=== PATIENT | female | born 1975 | race Two or more races ===

== ENCOUNTER 2020-01-07 19:34 | Emergency (ER) | payer MEDICARE, MEDICAID ==
[~2020-01-07] VITALS: Ht 152.4 cm; Wt 90.7 kg
[~2020-01-07 19:34] MED LIST: AMIT25TA9; LEVE500T22 PO; MORP15TA PO; OXY10CRT PO; TRAZ100T3 PO
[2020-01-07] MEDS ORDERED: SODIUM CHLORIDE 0.9% 1,000 ML IV ONE (20:30)
[2020-01-07 21:29] LABS: Calcium 9.5 mg/dL (8.5-10.1)
[2020-01-07 21:30] LABS: Urine Bacteria FEW /hpf (None Seen); Urine Blood Negative /uL (Negative); Urine Hyaline Cast MOD /lpf (0 - 2); Urine Mucus FEW (None Seen); Urine Specific Gravity 1.014 (1.001-1.035); Urine WBC 1 /hpf (0 - 5)
[2020-01-07] MEDS ORDERED: MORPHINE SULFATE 4 MG/ML SYR/VIAL IV ONE (21:30)
[2020-01-07] MEDS ORDERED: ONDANSETRON HCL 4 MG/2 ML VIAL IV ONE (21:30)
[2020-01-07 21:32] LABS: Amylase 31 U/L (25-115); Lipase 67 U/L (73-393)
[2020-01-07 21:34] LABS: BUN/Creatinine Ratio 17.4; Bilirubin, Total 0.2 mg/dL (0.2-1.0); Total Protein 7.5 g/dL (6.4-8.2)
[2020-01-07 21:41] LABS: Basophils # (auto) 0 10 ^3/uL (0-0.2); Basophils % (auto) 0.3 % (0.0-2.0); Eosinophils # (auto) 0 10 ^3/uL (0-0.8); Eosinophils % (auto) 0.3 % (0.0-7.0); Hemoglobin 11.6 g/dL (12.2-16.2); Lymphocytes % (auto) 20.9 % (10.0-50.0); Mean Corpuscular Hemoglobin 28.4 pg (28.0-32.0); Mean Corpuscular Hgb Conc. 32.3 g/dL (32.0-36.0); Mean Corpuscular Volume 87.7 fL (80.0-100.0); Monocytes # (auto) 0.7 10 ^3/uL (0-1.3); Monocytes % (auto) 7.9 % (0.0-12.0); Neutrophils # (auto) 6.7 10 ^3/uL (1.6-8.6); Neutrophils % (auto) 70.6 % (37.0-80.0); Nucleated Red Blood Cells % 0.1 %; Platelet Count (auto) 383 10^3/uL (140-450); Red Cell Distribution Width 13.6 % (11.8-14.3); White Blood Cell 9.5 10^3/uL (4.4-10.8)
[2020-01-07 22:24] VITALS: BP 91/47
== END 2020-01-08 00:08 | disposition home or self-care (01) ==
LOC: ER 19:35
DX: K59.00 Constipation, unspecified (principal); N39.0 Urinary tract infection, site not specified; F19.90 Other psychoactive substance use, unspecified, uncomplicated; I10 Essential (primary) hypertension; E11.9 Type 2 diabetes mellitus without complications; Z79.899 Other long term (current) drug therapy; Z88.1 Allergy status to other antibiotic agents
CPT/HCPCS: 36415; 74176; 80053; 81001; 81025; 82150; 83690; 85025; 96374; 96375; 99284; J2270; J2405

== ENCOUNTER 2020-02-03 02:28 | Emergency (ER) | payer MEDICARE, MEDICAID ==
[~2020-02-03] VITALS: Ht 152.4 cm; Wt 104.3 kg
[2020-02-03] MEDS ORDERED: KETOROLAC TROMETH 60MG/2ML VIAL IM ONE (05:00)
[2020-02-03] MEDS ORDERED: methylPREDNISolone SOD SUCC 125 MG/2 ML VL IM ONE (05:00)
[2020-02-03] MEDS ORDERED: HYDROcodone-ACET 10/325MG TAB PO ONE (05:00)
[2020-02-03 06:06] VITALS: BP 119/67
== END 2020-02-03 06:07 | disposition home or self-care (01) ==
LOC: ER 02:30
DX: M54.16 Radiculopathy, lumbar region (principal); M54.40 Lumbago with sciatica, unspecified side; G89.29 Other chronic pain; E11.9 Type 2 diabetes mellitus without complications; I10 Essential (primary) hypertension; Z88.1 Allergy status to other antibiotic agents; Z79.899 Other long term (current) drug therapy
CPT/HCPCS: 82962; 96372; 99283; J1885

== ENCOUNTER 2020-02-06 09:08 | Emergency (ER) | payer MEDICARE, MEDICAID ==
[~2020-02-06] VITALS: Ht 154.9 cm; Wt 104.3 kg
[~2020-02-06 09:08] MED LIST changes: -LEVE500T22 PO; +LEVE500T32 PO
[2020-02-06 09:42] VITALS: BP 112/52
[2020-02-06] MEDS ORDERED: MORPHINE SULFATE 10 MG/ML INJ 1ML SDV IM ONE ×2 (10:15→10:30)
[2020-02-06] MEDS ORDERED: PROMETHAZINE HCL 25 MG/ML 1ML IM ONE (10:15)
[2020-02-06] MEDS ORDERED: MORPHINE SULFATE 4 MG/ML SYR/VIAL IM ONE (10:30)
== END 2020-02-06 11:06 | disposition home or self-care (01) ==
LOC: ER 09:08 → EDBD 09:08 → ER 11:06
DX: M54.5 Low back pain (principal); G89.29 Other chronic pain; E11.9 Type 2 diabetes mellitus without complications; I10 Essential (primary) hypertension; Z88.1 Allergy status to other antibiotic agents
CPT/HCPCS: 96372; 99284; J2270; J2550

== ENCOUNTER 2020-12-05 23:41 | Inpatient (IN) | payer MEDICARE, MEDICAID ==
[~2020-12-05] VITALS: Ht 152.4 cm; Wt 101.7 kg
[2020-12-05] MEDS ORDERED: FAMOTIDINE (10MG/ML) 2ML VL IV ONE (23:45)
[2020-12-05] MEDS ORDERED: ONDANSETRON HCL 4 MG/2 ML VIAL IV ONE (23:45)
[2020-12-05] MEDS ORDERED: MORPHINE SULFATE 4 MG/ML SYR/VIAL IV ONE (23:45)
[2020-12-06 00:32] LABS: Basophils # (auto) 0 10 ^3/uL (0-0.2); Eosinophils # (auto) 0.1 10 ^3/uL (0-0.8); Eosinophils % (auto) 1.3 % (0.0-7.0); Hematocrit 30.8 % (36.0-46.0); Hemoglobin 10.6 g/dL (12.2-16.2); Lymphocytes # (auto) 1.6 10 ^3/uL (0.4-5.4); Lymphocytes % (auto) 22.2 % (10.0-50.0); Mean Corpuscular Hemoglobin 30.6 pg (28.0-32.0); Mean Corpuscular Hgb Conc. 34.3 g/dL (32.0-36.0); Mean Corpuscular Volume 89.3 fL (80.0-100.0); Monocytes # (auto) 0.8 10 ^3/uL (0-1.3); Monocytes % (auto) 10.5 % (0.0-12.0); Neutrophils # (auto) 4.8 10 ^3/uL (1.6-8.6); Nucleated Red Blood Cells % 0.1 %; Platelet Count (auto) 338 10^3/uL (140-450); Red Blood Cells 3.45 10^6/uL (4.0-5.20); White Blood Cell 7.4 10^3/uL (4.4-10.8)
[2020-12-06] MEDS ORDERED: SODIUM CHLORIDE 0.9% 1,000 ML IV ONE ×2 (00:45→07:15)
[2020-12-06 00:49] LABS: Albumin 2.7 g/dL (3.4-5.0); Calcium 7.4 mg/dL (8.5-10.1); Potassium 3.6 mmol/L (3.5-5.1)
[2020-12-06 00:51] LABS: BUN/Creatinine Ratio 37.9
[2020-12-06 00:53] LABS: Bilirubin, Total 0.1 mg/dL (0.2-1.0); Total Protein 5.7 g/dL (6.4-8.2)
[2020-12-06 01:06] LABS: INR 1.01 (0.9-1.15); Partial Thromboplastin Time 20.9 sec (23.0-31.2)
[2020-12-06] MEDS ORDERED: MORPHINE SULFATE 4 MG/ML SYR/VIAL IV ONE (05:30)
[2020-12-06] MEDS ORDERED: ONDANSETRON HCL 4 MG/2 ML VIAL IV ONE (05:30)
[2020-12-06 05:46] LABS: Hematocrit 33.6 % (36.0-46.0); Hemoglobin 11.2 g/dL (12.2-16.2)
[2020-12-06 06:23] LABS: Urine Bacteria FEW /hpf (None Seen); Urine Blood Negative /uL (Negative); Urine Specific Gravity 1.013 (1.001-1.035); Urine WBC 4 /hpf (0 - 5)
[2020-12-06] MEDS ORDERED: MORPHINE SULFATE 4 MG/ML SYR/VIAL IV PRN (07:15)
[2020-12-06] MEDS ORDERED: DEXTROSE (50%) 50ML SYRG IV PRN (07:15)
[2020-12-06] MEDS ORDERED: SODIUM CHLORIDE 0.9% 1,000 ML IV SCH (07:15)
[2020-12-06] MEDS ORDERED: MORPHINE SULF INJ 2 MG/ML SYRINGE 1ML IV PRN (07:15)
[2020-12-06] MEDS ORDERED: ALBUMIN 5% 250 ML IV ONE (07:15)
[2020-12-06] MEDS ORDERED: NITROGLYCERIN 0.4 MG SL TAB SL PRN (07:15)
[2020-12-06] MEDS: ONDANSETRON HCL 4 MG/2 ML VIAL IV PRN ×2 (08:36→23:54)
[2020-12-06] MEDS: levoFLOXacin 500MG 100 ML IV SCH (10:00)
[2020-12-06] MEDS: PANTOPRAZOLE 40 MG/10 ML VIAL INJ IV SCH (10:00)
[2020-12-06] MEDS: SODIUM CHLORIDE 0.9% 1,000 ML IV SCH ×3 (10:04→22:50)
[2020-12-06] MEDS ORDERED: HYDROmorphone HCL 2 MG/ML VL IV ONE (11:00)
[2020-12-06] MEDS: ACCU-CHEK COMFORT CURVE STRIP VI SCH ×2 (11:23→18:00)
[2020-12-06] MEDS: InsuLIN REG 1unit/0.01ml Soln (100units/ml) SC SCH ×2 (11:27→18:00)
[2020-12-06] MEDS ORDERED: HYDROmorphone HCL 2 MG/ML VL IV PRN (11:30)
[2020-12-06 13:00] VITALS: BP_SYST 103; BP_SYST 145; BP_DIAS 70; BP_DIAS 71
[2020-12-06] MEDS: metroNIDAZOLE 500MG/100ML 100 ML IV SCH ×2 (13:34→22:43)
[2020-12-06] MEDS ORDERED: GOLYTELY 4L KIT PO ONE (16:30)
[2020-12-06 17:00] VITALS: BP 111/60
[2020-12-06] MEDS ORDERED: TIZA4CAP13 PO (17:25)
[2020-12-06] MEDS ORDERED: METF-929 PO (17:25)
[2020-12-06] MEDS ORDERED: LEVE100012 PO (17:35)
[2020-12-06] MEDS ORDERED: AMIT25TA9 PO (17:35)
[2020-12-06] MEDS ORDERED: MORP1TAB14 PO (17:35)
[2020-12-06] MEDS ORDERED: IBUP800T27 PO (17:35)
[2020-12-06] MEDS ORDERED: INSU100I33 SC (17:35)
[2020-12-06] MEDS ORDERED: [UNRECOGNIZED DRUG - CODE] BU (17:35)
[2020-12-06] MEDS ORDERED: GEMF600T7 PO (17:35)
[2020-12-06] MEDS ORDERED: SITA100T7 PO (17:39)
[2020-12-06] MEDS ORDERED: LISI-275 PO (17:39)
[2020-12-06] MEDS ORDERED: METO-158 PO (17:39)
[2020-12-06] MEDS: HYDROmorphone HCL 2 MG/ML VL IV PRN (18:30)
[2020-12-06 22:00] VITALS: BP 139/59
[2020-12-07] MEDS: HYDROmorphone HCL 2 MG/ML VL IV PRN ×7 (00:42→21:09)
[2020-12-07] MEDS: InsuLIN REG 1unit/0.01ml Soln (100units/ml) SC SCH ×4 (00:46→17:24)
[2020-12-07 05:00] VITALS: BP 119/78
[2020-12-07] MEDS: SODIUM CHLORIDE 0.9% 1,000 ML IV SCH ×2 (05:30→14:22)
[2020-12-07] MEDS ORDERED: GOLYTELY 4L KIT PO ONE (06:00)
[2020-12-07] MEDS: ACCU-CHEK COMFORT CURVE STRIP VI SCH ×4 (06:00→17:24)
[2020-12-07 06:39] LABS: Basophils # (auto) 0 10 ^3/uL (0-0.2); Basophils % (auto) 0.2 % (0.0-2.0); Eosinophils # (auto) 0.1 10 ^3/uL (0-0.8); Hematocrit 29.4 % (36.0-46.0); Hemoglobin 10.2 g/dL (12.2-16.2); Lymphocytes % (auto) 26.5 % (10.0-50.0); Mean Corpuscular Hemoglobin 30.5 pg (28.0-32.0); Mean Corpuscular Hgb Conc. 34.7 g/dL (32.0-36.0); Mean Corpuscular Volume 87.9 fL (80.0-100.0); Monocytes # (auto) 1.1 10 ^3/uL (0-1.3); Neutrophils # (auto) 4.4 10 ^3/uL (1.6-8.6); Neutrophils % (auto) 57.3 % (37.0-80.0); Platelet Count (auto) 366 10^3/uL (140-450); Red Blood Cells 3.35 10^6/uL (4.0-5.20); Red Cell Distribution Width 13.9 % (11.8-14.3); White Blood Cell 7.6 10^3/uL (4.4-10.8)
[2020-12-07] MEDS: metroNIDAZOLE 500MG/100ML 100 ML IV SCH ×3 (06:57→21:34)
[2020-12-07 07:45] LABS: Albumin 2.8 g/dL (3.4-5.0); BUN/Creatinine Ratio 21.4; Bilirubin, Total 0.3 mg/dL (0.2-1.0); Calcium 8.5 mg/dL (8.5-10.1); Magnesium 1.9 mg/dL (1.6-2.6); Total Protein 6.2 g/dL (6.4-8.2)
[2020-12-07] MEDS: ONDANSETRON HCL 4 MG/2 ML VIAL IV PRN (08:17)
[2020-12-07 08:35] VITALS: BP 123/71
[2020-12-07] MEDS: PANTOPRAZOLE 40 MG/10 ML VIAL INJ IV SCH (10:02)
[2020-12-07] MEDS: levoFLOXacin 500MG 100 ML IV SCH (10:02)
[2020-12-07] MEDS ORDERED: POTASSIUM CHL 20 Meq TABLET PO ONE (10:30)
[2020-12-07] MEDS ORDERED: OPTISON 3ml Vial for INJ IV ONE (11:03)
[2020-12-07] MEDS ORDERED: MAGNESIUM SULFATE 1GM/100ML 100 ML IV ONE (12:30)
[2020-12-07] MEDS ORDERED: ERGOCALCIFEROL 50,000 UNIT(1.25MG) CAP PO SCH (12:30)
[2020-12-07 12:35] VITALS: BP 124/74
[2020-12-07 16:42] VITALS: BP 115/53
[2020-12-07] MEDS: levETIRAcetam 500 MG TAB PO SCH (21:34)
[2020-12-07 22:00] VITALS: BP 122/80
[2020-12-08] MEDS: ACCU-CHEK COMFORT CURVE STRIP VI SCH ×2 (00:31→12:57)
[2020-12-08] MEDS: SODIUM CHLORIDE 0.9% 1,000 ML IV SCH ×2 (00:43→06:04)
[2020-12-08] MEDS: HYDROmorphone HCL 2 MG/ML VL IV PRN ×4 (00:45→11:42)
[2020-12-08 05:00] VITALS: BP 118/64
[2020-12-08] MEDS: metroNIDAZOLE 500MG/100ML 100 ML IV SCH (06:00)
[2020-12-08 07:52] LABS: Hemoglobin 9.8 g/dL (12.2-16.2)
[2020-12-08 08:11] LABS: Magnesium 1.8 mg/dL (1.6-2.6); Potassium 3.1 mmol/L (3.5-5.1)
[2020-12-08 08:30] VITALS: BP 120/73
[2020-12-08] MEDS: PANTOPRAZOLE 40 MG/10 ML VIAL INJ IV SCH (09:53)
[2020-12-08] MEDS: levoFLOXacin 500MG 100 ML IV SCH (09:53)
[2020-12-08] MEDS: levETIRAcetam 500 MG TAB PO SCH (09:54)
[2020-12-08] MEDS ORDERED: MORPHINE SULFATE 4 MG/ML SYR/VIAL IV PRN (11:15)
[2020-12-08] MEDS ORDERED: HYDROmorphone HCL 2 MG/ML VL IV PRN (11:15)
[2020-12-08] MEDS ORDERED: ONDANSETRON HCL 4 MG/2 ML VIAL IV PRN (11:15)
[2020-12-08] MEDS ORDERED: LEVO500T31 PO (12:23)
[2020-12-08] MEDS ORDERED: MET25T PO (12:23)
[2020-12-08] MEDS ORDERED: METR500T PO (12:23)
[2020-12-08] MEDS ORDERED: CHOL20007 PO (12:23)
[2020-12-08 12:30] VITALS: BP 130/83
[2020-12-08] MEDS ORDERED: MAGNESIUM SULFATE 1GM/100ML 100 ML IV ONE (12:30)
[2020-12-08] MEDS ORDERED: POTASSIUM CHL 20 Meq TABLET PO ONE (12:30)
[2020-12-08] MEDS: InsuLIN REG 1unit/0.01ml Soln (100units/ml) SC SCH ×2 (12:57)
[2020-12-08 14:19] VITALS: BP 103/58
== END 2020-12-08 14:15 | disposition home or self-care (01) | DRG 394 ==
LOC: ER 23:42 → TELE 12-06 07:20 → TELE-CENTR 12-06 12:08
PROVIDERS: ADMIT Nurse Practitioner; ATTEND Internal Medicine
PROC: 0DBE8ZX Excision of Large Intestine, Via Natural or Artificial Opening Endoscopic, Diagnostic (ICD-10-PCS; 2020-12-08)
PROC: 0DBL8ZX Excision of Transverse Colon, Via Natural or Artificial Opening Endoscopic, Diagnostic (ICD-10-PCS; principal; 2020-12-08 10:39)
DX: K55.039 Acute (reversible) ischemia of large intestine, extent unspecified (principal); K63.3 Ulcer of intestine; Z68.41 Body mass index [BMI] 40.0-44.9, adult; E05.90 Thyrotoxicosis, unspecified without thyrotoxic crisis or storm; E66.01 Morbid (severe) obesity due to excess calories; G89.29 Other chronic pain; E55.9 Vitamin D deficiency, unspecified; E11.65 Type 2 diabetes mellitus with hyperglycemia; E87.6 Hypokalemia; Z20.822 Contact with and (suspected) exposure to COVID-19; Z88.8 Allergy status to other drugs, medicaments and biological substances; G40.909 Epilepsy, unspecified, not intractable, without status epilepticus; I10 Essential (primary) hypertension; M54.9 Dorsalgia, unspecified; R00.0 Tachycardia, unspecified; D64.9 Anemia, unspecified
CPT/HCPCS: 36415; 45380; 74177; 80053; 80061; 81001; 82270; 82306; 82550; 82962; 83036; 83615; 83735; 83880; 84132; 84443; 84702; 85014; 85018; 85025; 85379; 85610; 85730; 86850; 86900; 86901; 86920; 87045; 87426; 87427; 87493; 93005; 93306; 96361; 96365; 96367; 96375; 96376; C9113; G0378; J1815; J1956; J2405; J3490; Q9956

== ENCOUNTER 2021-02-21 20:23 | Inpatient (IN) | payer MEDICARE, MEDICAID ==
[~2021-02-21] VITALS: Ht 170.2 cm; Wt 90.7 kg
[~2021-02-21 20:23] MED LIST changes: -AMIT25TA9; +AMIT25TA9 PO; +CHOL20007 PO; +GEMF-19 PO; +IBUP800T27 PO; +INSU100I33 SC; +LEVE100012 PO; -LEVE500T32 PO; +LEVO500T31 PO; +LISI-275 PO; +MET25T PO; +METF-929 PO; +METR500T PO; -MORP15TA PO; +MORP1TAB14 PO; -OXY10CRT PO; +SITA100T7 PO; +TIZA4CAP13 PO; -TRAZ100T3 PO; +[UNRECOGNIZED DRUG - CODE] BU
[2021-02-21] MEDS ORDERED: PANTOPRAZOLE 40 MG/10 ML VIAL INJ IV STA (20:35)
[2021-02-21] MEDS ORDERED: SODIUM CHLORIDE 0.9% 500 ML IVB ONE (20:45)
[2021-02-21] MEDS ORDERED: HYDROmorphone HCL 2 MG/ML VL IV ONE ×3 (20:45→22:30)
[2021-02-21] MEDS ORDERED: ONDANSETRON HCL 4 MG/2 ML VIAL IV ONE (20:45)
[2021-02-21 22:08] LABS: Basophils # (auto) 0 10 ^3/uL (0-0.2); Basophils % (auto) 0.5 % (0.0-2.0); Eosinophils # (auto) 0.1 10 ^3/uL (0-0.8); Eosinophils % (auto) 0.6 % (0.0-7.0); Hematocrit 30.2 % (36.0-46.0); Hemoglobin 10.3 g/dL (12.2-16.2); Lymphocytes # (auto) 1.3 10 ^3/uL (0.4-5.4); Lymphocytes % (auto) 14.2 % (10.0-50.0); Mean Corpuscular Hemoglobin 30.2 pg (28.0-32.0); Mean Corpuscular Volume 88.9 fL (80.0-100.0); Monocytes # (auto) 0.7 10 ^3/uL (0-1.3); Monocytes % (auto) 7.1 % (0.0-12.0); Neutrophils # (auto) 7.3 10 ^3/uL (1.6-8.6); Neutrophils % (auto) 77.6 % (37.0-80.0); Platelet Count (auto) 362 10^3/uL (140-450); Red Cell Distribution Width 13.2 % (11.8-14.3); White Blood Cell 9.3 10^3/uL (4.4-10.8)
[2021-02-21 22:20] LABS: BUN/Creatinine Ratio 35.9; Calcium 7.1 mg/dL (8.5-10.1); Potassium 3.2 mmol/L (3.5-5.1)
[2021-02-21 22:29] LABS: Bilirubin, Total 1.3 mg/dL (0.2-1.0)
[2021-02-21] MEDS ORDERED: levoFLOXacin 500MG 100 ML IV ONE (22:45)
[2021-02-21] MEDS ORDERED: ONDANSETRON HCL 4 MG/2 ML VIAL IV PRN (22:45)
[2021-02-21] MEDS ORDERED: metroNIDAZOLE 500MG/100ML 100 ML IV ONE (22:45)
[2021-02-21] MEDS ORDERED: DEXTROSE (50%) 50ML SYRG IV PRN (22:45)
[2021-02-21] MEDS ORDERED: MORPHINE SULFATE 4 MG/ML SYR/VIAL IV PRN (22:45)
[2021-02-21] MEDS ORDERED: SODIUM CHLORIDE 0.9% 1,000 ML IV SCH (22:45)
[2021-02-22] MEDS ORDERED: InsuLIN REG 1unit/0.01ml Soln (100units/ml) SC SCH
[2021-02-22] MEDS ORDERED: ACCU-CHEK COMFORT CURVE STRIP VI SCH
[2021-02-22 00:26] LABS: Urine Bacteria FEW /hpf (None Seen); Urine Blood Negative /uL (Negative); Urine Specific Gravity 1.011 (1.001-1.035); Urine WBC <1 /hpf (0 - 5)
[2021-02-22 01:00] VITALS: BP 135/58
[2021-02-22] MEDS ORDERED: HYDROmorphone HCL 2 MG/ML VL IV ONE (02:30)
[2021-02-22] MEDS ORDERED: metroNIDAZOLE 500MG/100ML 100 ML IV SCH (06:00)
[2021-02-22] MEDS ORDERED: PANTOPRAZOLE 40 MG/10 ML VIAL INJ IV SCH (10:00)
[2021-02-22] MEDS ORDERED: levoFLOXacin 500MG 100 ML IV SCH (21:00)
== END 2021-02-22 02:20 | disposition left against medical advice (07) | DRG 444 ==
LOC: EDBD 20:23 → ER 20:25 → OVERFLOW 22:35
PROVIDERS: ADMIT Nurse Practitioner; ATTEND Nurse Practitioner
DX: K80.00 Calculus of gallbladder with acute cholecystitis without obstruction (principal); K85.90 Acute pancreatitis without necrosis or infection, unspecified; E11.9 Type 2 diabetes mellitus without complications; Z20.822 Contact with and (suspected) exposure to COVID-19; E66.9 Obesity, unspecified; Z53.29 Procedure and treatment not carried out because of patient's decision for other reasons; R74.01 Elevation of levels of liver transaminase levels; E78.5 Hyperlipidemia, unspecified; I10 Essential (primary) hypertension; Z83.3 Family history of diabetes mellitus; Z88.1 Allergy status to other antibiotic agents; Z98.51 Tubal ligation status
CPT/HCPCS: 36415; 76705; 80053; 81001; 82150; 82962; 83690; 85025; 87426; 96365; 96367; 96375; C9113; G0378; J1815; J1956; J2405; J3490